=== PATIENT | female | born 1985 | race Caucasian/White ===

== ENCOUNTER 2016-07-17 16:38 | Emergency (ER) | payer BC, OTHER ==
[~2016-07-17] VITALS: Ht 157.5 cm; Wt 78.6 kg
[~2016-07-17 16:38] MED LIST: BUSP-8 PO
[2016-07-17 16:44] VITALS: TEMP 36.5; Ht 157.5 cm; Wt 78.6 kg
[2016-07-17] MEDS ORDERED: PROMETHAZINE HCL INJ 12.5 MG in SODIUM CHLORIDE 0.9% 50ML 50 ML IV STA (17:40)
[2016-07-17] MEDS ORDERED: SODIUM CHLORIDE 0.9% 1000ML 1,000 ML IV STA ×2 (17:40→19:04)
[2016-07-17 18:08] LABS: BASO % 0.2 %; BASO ABS # 0.02 K/uL (0-0.2); COMPLETE YES; EOS % 0.4 %; HEMATOCRIT 42.4 % (37-47); IG% 0.2 %; LYMPH % 22.5 %; LYMPH ABS # 2.58 K/uL (1.2-3.4); MEAN CORPUSCULAR HEMOGLOBIN 30.7 pg (25-34); MEAN CORPUSCULAR HGB CONC 34.9 g/dl (32-36); MEAN PLATELET VOLUME 10.6 fL (7.4-10.4); MONO % 5.1 %; NEUT % 71.6 %; PLATELET COUNT 241 K/uL (130-400); RED BLOOD COUNT 4.82 M/uL (4.2-5.4); WHITE BLOOD COUNT 11.47 K/uL (4.8-10.8)
[2016-07-17 18:32] LABS: BUN/CREATININE RATIO 15.7 (10-20); CREATININE 0.62 mg/dl (0.60-1.20)
[2016-07-17 20:04] VITALS: BP 139/76; PULSE 86; O2SAT 98
--- NOTE | 2016-07-17 23:10 | EMERGENCY ROOM VISIT NOTE ---
History Report prepared by Tamar: Chanel Ding Under the Supervision of: Dr. Cosmo Grant M.D. First contact with patient: 17:35 Chief Complaint: REFERRED BY DOCTOR Stated Complaint: N/V, LARGE KETONES IN URINE, 10WKS PREG,WEIGHTLOSS History of Present Illness The patient is a 30 year old female who presents to the Emergency Room with complaints of constant vomiting beginning 10 weeks ago. The patient reports that she is 10 weeks and has been vomiting the entire time including just prior to getting . The patient was referred to the ED by her doctor to receive fluids. She states that she has tried Zofran with no relief of her symptoms. She was then switched to oral Phenergan is and recently was prescribed Phenergan suppositories that are too expensive as her insurance does not cover the cost. She notes associated nausea. The patient denies any pain, vaginal bleeding or discharge, diarrhea, and fever. She reports that she had large amounts of ketones in her urine at her doctors office but no infection. Source of History: patient Onset: 10 weeks ago Position: other (global) Quality: other (vomiting) Timing: constant Associated Symptoms: + nausea, No diarrhea, No fevers Note: The patient denies any pain and vaginal bleeding or discharge. Review of Systems See HPI for pertinent positives & negatives. A total of 10 systems reviewed and were otherwise negative. Past Medical & Surgical Medical Problems: (1) No significant medical problems Surgical Problems: (1) No significant past surgical history (2) No significant past surgical history Family History No pertinent family history stated. Social History Smoking Status: Never Smoker Alcohol Use: occasionally Marital Status: Housing Status: lives with family Occupation Status: employed Current/Historical Medications Scheduled Citalopram Hydrobromide (Celexa), 40 MG PO DAILY Multivit/Min/Iron/Fol Ac/Pren ( Vitamin), 1 TAB PO DAILY Scheduled PRN Promethazine (Phenergan ), 12.5 MG PO Q6H PRN for Nausea or Vomiting Allergies Coded Allergies: Aminoglycosides (Verified Allergy, Mild, INCREASED REDNESS;SWELLING, ) Bacitracin (Verified Allergy, Mild, INCREASED REDNESS;SWELLING, 07/17/16) Clavulanic Acid (Verified Allergy, Mild, HIVES, 07/17/16) Neomycin (Verified Allergy, Mild, INCREASED REDNESS;SWELLING, 07/17/16) Polymyxin B (Verified Allergy, Mild, INCREASED REDNESS;SWELLING, 07/17/16) Amoxicillin (Unverified Allergy, Unknown, HIVES, 07/17/16) Penicillins (Verified Allergy, Unknown, 07/17/16) Uncoded Allergies: BETALACTAMASEIN (Allergy, Mild, HIVES, 10/06/14) Physical Exam Vital Signs Date Time Temp Pulse Resp B/P Pulse Ox O2 Delivery O2 Flow Rate FiO2 07/17/16 20:04 86 18 139/76 98 07/17/16 18:13 79 20 113/68 100 Room Air 07/17/16 16:44 36.5 106 18 118/74 98 Room Air Physical Exam Constitutional: Vital signs reviewed. Eyes: Pupils are equal round reactive to light. Conjunctiva are noninjected. ENT: Pharynx is clear without erythema or exudate. Mucous membranes are dry. Neck supple without meningeal signs. Respiratory: Clear to auscultation bilaterally. Breath sounds are equal bilaterally. Cardiovascular: Regular rate and rhythm. No rubs or gallops. GI: Soft, nondistended and nontender. Bowel sounds are present. Musculoskeletal: No peripheral edema. No lower extremity tenderness. No CVA tenderness. Integumentary: No cyanosis. Neurological: The patient is awake and alert. No focal deficits. Psychiatric: Normal affect. Medical Decision & Procedures Laboratory Results 07/17/16 17:55 Red Blood Count 4.82, Mean Corpuscular Volume 88.0, Mean Corpuscular Hemoglobin 30.7, Mean Corpuscular Hemoglobin Concent 34.9, Mean Platelet Volume 10.6, Neutrophils (%) (Auto) 71.6, Lymphocytes (%) (Auto) 22.5, Monocytes (%) (Auto) 5.1, Eosinophils (%) (Auto) 0.4, Basophils (%) (Auto) 0.2, Neutrophils # (Auto) 8.21, Lymphocytes # (Auto) 2.58, Monocytes # (Auto) 0.59, Eosinophils # (Auto) 0.05, Basophils # (Auto) 0.02 07/17/16 17:55 Test 07/17/16 17:55 White Blood Count 11.47 K/uL (4.8-10.8) Red Blood Count 4.82 M/uL (4.2-5.4) Hemoglobin 14.8 g/dL (12.0-16.0) Hematocrit 42.4 % (37-47) Mean Corpuscular Volume 88.0 fL (80-100) Mean Corpuscular Hemoglobin 30.7 pg (25-34) Mean Corpuscular Hemoglobin Concent 34.9 g/dl (32-36) Platelet Count 241 K/uL (130-400) Mean Platelet Volume 10.6 fL (7.4-10.4) Neutrophils (%) (Auto) 71.6 % Lymphocytes (%) (Auto) 22.5 % Monocytes (%) (Auto) 5.1 % Eosinophils (%) (Auto) 0.4 % Basophils (%) (Auto) 0.2 % Neutrophils # (Auto) 8.21 K/uL (1.4-6.5) Lymphocytes # (Auto) 2.58 K/uL (1.2-3.4) Monocytes # (Auto) 0.59 K/uL (0.11-0.59) Eosinophils # (Auto) 0.05 K/uL (0-0.5) Basophils # (Auto) 0.02 K/uL (0-0.2) RDW Standard Deviation 43.1 fL (36.4-46.3) RDW Coefficient of Variation 13.4 % (11.5-14.5) Immature Granulocyte % (Auto) 0.2 % Immature Granulocyte # (Auto) 0.02 K/uL (0.00-0.02) Anion Gap 10.0 mmol/L (3-11) Est Creatinine Clear Calc Drug Dose 130.0 ml/min Estimated GFR () 141.2 Estimated GFR (Non- 121.9 BUN/Creatinine Ratio 15.7 (10-20) Calcium Level 9.0 mg/dl (8.5-10.1) Laboratory results as reviewed by me. Medications Administered Medications (Trade) Dose Ordered Sig/Mita Route Start Time Stop Time Status Last Admin Dose Admin Sodium Chloride 1,000 ml @ 999 mls/hr Q1H1M STAT IV 07/17/16 17:40 07/17/16 18:40 DC 07/17/16 18:12 999 MLS/HR Promethazine HCl 12.5 mg/Sodium Chloride 50.5 ml @ 204 mls/hr NOW STAT IV 07/17/16 17:40 14/17 17:54 DC 07/17/16 18:12 204 MLS/HR Sodium Chloride (Nss 1000ml) 1,000 ml @ 999 mls/hr Q1H1M STAT IV 07/17/16 19:04 07/17/16 20:04 DC 07/17/16 19:04 999 MLS/HR ED Course 1735: The patient was evaluated in room C10. A complete history and physical exam was performed. 1739: Promethazine HCl 12.5mg/Sodium Chloride 50.5ml @ 204 mls/hr IV, Sodium Chloride 1000 ml @ 999 mls/hr IV. 1903: Sodium Chloride 1000 ml @ 999 mls/hr IV. 1899: I reevaluated the patient. She feels better but we are going to give her another liter of fluids. I discussed with her risks and benefits of Reglan and she is agreeable to a prescription instead of the Phenergan suppositories. 1942: I reevaluated the patient. She is feeling better and wants to go home. 1951: I spoke to the patient and she will try the oral Phenergan again. 1958: Upon reevaluation, the patient appeared to have improvement of her symptoms. I discussed priscila's findings with the patient. She verbalized agreement of the treatment plan. The patient was discharged home. Medical Decision This is a 30-year-old female who presents with vomiting in the setting of . Differential diagnosis includes dehydration, electrolyte abnormality , hyperemesis gravidarum, metabolic derangement, DKA. I did perform a limited focused review of portions of the patient's old chart on the electronic medical record. The patient has had no recent pertinent visits to this hospital. I did evaluate the patient as noted above. I did speak to Dr. Alexander about this patient. He recommended IV fluids and Phenergan. IV access was established. I did treat the patient with normal saline IV and Phenergan IV. I did order and review the patient's blood work as noted in the electronic medical record. I did reassess the patient. She is feeling better but I did give her another liter of normal saline. On reassessment she states that she has been doing better and wished to be discharged home. She is still nauseated but did not wish to be hospitalized. I was called to prescribe her Reglan but there were interactions with her Celexa and so after discussion with the patient she decided that she would try to stick with the oral Phenergan. She will follow up with her doctor. She was discharged in good condition. Impression Primary Impression: Dehydration Additional Impressions: Vomiting, First trimester Scribe Attestation The scribe's documentation has been prepared under my direct and personally reviewed by me in its entirety. I confirm that the note above accurately reflects all work, treatment, procedures, and medical decision making performed by me. Departure Information Dispostion Home / Self-Care Referrals No Doctor, Assigned (PCP) Forms HOME CARE DOCUMENTATION FORM, IMPORTANT VISIT INFORMATION, WORK / SCHOOL INSTRUCTIONS Patient Instructions A Signature Page, Dehydration, My [facility] Additional Instructions You have been examined and treated today on an emergency basis only. This is not a substitute for, or an effort to provide, complete comprehensive medical care. It is impossible to recognize and treat all injuries or illnesses in a single emergency department visit. It is therefore important that you follow up closely with your physician. Call as soon as possible for an appointment. Return for worsening symptoms or if you develop fever, abdominal pain, or any other concerning symptoms.
[2016-07-18] MEDS ORDERED: CITA40TA12 PO (00:41)
[2016-07-18] MEDS ORDERED: ONDA4TAB10 SL (11:31)
[2016-07-18] MEDS ORDERED: PRENTAB26 PO (17:49)
[2016-07-18] MEDS ORDERED: PROM12.57 PO (17:49)
== END 2016-07-17 20:05 | disposition home or self-care (01) ==
LOC: C.EDB 16:40 → C.EDC 20:05
DX: O99.89 Other specified diseases and conditions complicating pregnancy, childbirth and the puerperium (principal); E86.0 Dehydration; R11.2 Nausea with vomiting, unspecified; Z79.899 Other long term (current) drug therapy

== ENCOUNTER 2016-07-18 06:55 | Emergency (ER) | payer BC ==
[~2016-07-18] VITALS: Ht 157.5 cm; Wt 79.4 kg
[~2016-07-18 06:55] MED LIST changes: -BUSP-8 PO; +CITA40TA12 PO
[2016-07-18 07:00] VITALS: TEMP 36.6; Ht 157.5 cm; Wt 79.4 kg
[2016-07-18] MEDS ORDERED: THIAMINE HCL 100 MG/ML 2 ML VIAL IV STA (07:10)
[2016-07-18] MEDS ORDERED: PROMETHAZINE HCL INJ 12.5 MG in SODIUM CHLORIDE 0.9% 50ML 50 ML IV STA (07:10)
[2016-07-18] MEDS ORDERED: SODIUM CHLORIDE 0.9% 1000ML 1,000 ML IV STA ×2 (07:10)
[2016-07-18] MEDS ORDERED: FAMOTIDINE 20MG/102 ML D5W IV STA (07:10)
--- NOTE | 2016-07-18 07:26 | EMERGENCY ROOM VISIT NOTE ---
History Report prepared by Tamar: Roberto Cruz Under the Supervision of: Dr. Bobby Briceño D.O. First contact with patient: 07:05 Chief Complaint: VOMITING Stated Complaint: NAUSEA,VOMITING Nursing Triage Summary: States was seen yesterday at the request of her [facility]AIL [facility]PARTMENT [facility]ET, 10-weeks , with vomiting, had fluids and was d/c. Woke with vomiting and was told to come in if it started again. History of Present Illness The patient is a 30 year old female who presents to the Emergency Room with complaints of episodes of vomiting that started last night. She is 10-weeks . The patient was here last night for dehydration and she was given Phenergan. She has been vomiting ever since. This morning, she started vomiting blood, so she called the OB job specification writer, and a nurse answered and told the patient to come to the ED if she vomited again. The patient continued vomiting and vomited a total of 4 times this morning. She notes that she cannot even keep water down. The patient has been vomiting for 8 weeks and has been associating the vomiting with nausea. She has been tried on Zofran, among other medications , but nothing is working. She tried to take her Phenergan today but it came right back up 5 minutes later. She has not been urinating much because she cannot keep anything down, but she denies any urinary symptoms. The patient denies vaginal bleeding. She has depression and is taking Celexa for that. She also has interstitial cystitis, for which she is not being medicated for. The patient does not use tobacco or alcohol products. This is her 3rd , and she has not had any problems before with those. The patient is not on any blood thinners. She has a history of a tonsillectomy and adenoidectomy. Source of History: patient Onset: Last night Position: other (global - vomiting blood) Symptom Intensity: 4 times this morning Timing: other (episodes) Associated Symptoms: + nausea, No urinary symptoms Note: Associated symptoms: Denies vaginal bleeding. Review of Systems See HPI for pertinent positives & negatives. A total of 10 systems reviewed and were otherwise negative. Past Medical & Surgical Medical Problems: (1) No significant medical problems Surgical Problems: (1) History of tonsillectomy and adenoidectomy (2) No significant past surgical history (3) No significant past surgical history Family History Cancer Heart disease Social History Smoking Status: Never Smoker Alcohol Use: occasionally Marital Status: Housing Status: lives with family Occupation Status: employed Current/Historical Medications Scheduled Citalopram Hydrobromide (Celexa), 40 MG PO DAILY Multivit/Min/Iron/Fol Ac/Pren ( Vitamin), 1 TAB PO DAILY Ondasetron Odt (Zofran Odt), 4 MG SL Q6H Scheduled PRN Promethazine (Phenergan ), 12.5 MG PO Q6H PRN for Nausea or Vomiting Allergies Coded Allergies: Aminoglycosides (Verified Allergy, Mild, INCREASED REDNESS;SWELLING, ) Bacitracin (Verified Allergy, Mild, INCREASED REDNESS;SWELLING, 07/18/16) Clavulanic Acid (Verified Allergy, Mild, HIVES, 07/18/16) Neomycin (Verified Allergy, Mild, INCREASED REDNESS;SWELLING, 07/18/16) Polymyxin B (Verified Allergy, Mild, INCREASED REDNESS;SWELLING, 07/18/16) Amoxicillin (Unverified Allergy, Unknown, HIVES, 07/18/16) Penicillins (Verified Allergy, Unknown, 07/18/16) Uncoded Allergies: BETALACTAMASEIN (Allergy, Mild, HIVES, 10/06/14) Physical Exam Vital Signs Date Time Temp Pulse Resp B/P Pulse Ox O2 Delivery O2 Flow Rate FiO2 07/18/16 11:43 77 18 100/61 98 Room Air 07/18/16 11:13 81 07/18/16 09:19 82 20 98/68 99 Room Air 07/18/16 08:26 74 18 96/65 96 Room Air 07/18/16 07:47 91 14 107/66 98 Room Air 07/18/16 07:25 94 07/18/16 07:00 36.6 79 16 109/72 100 Room Air Physical Exam GENERAL: Patient is awake, alert, and in no acute distress. Patient is resting comfortably and showing no signs of anxiety EYES: The conjunctivae are clear. The pupils are round and reactive. EARS, NOSE, MOUTH AND THROAT: The nose is without any evidence of any deformity. Mucous membranes are dry. NECK: The neck is nontender and supple. RESPIRATORY: Normal respiratory effort is noted there is no evidence of wheezing rhonchi or rales CARDIOVASCULAR: Heart sounds tachycardic but regular. No definite murmur appreciated. GASTROINTESTINAL: The abdomen is soft. Bowel sounds are present in all quadrants. Abdomen is nontender MUSCULOSKELETAL/EXTREMITIES: There is no evidence of gross deformity full range of motion is noted in the hips and shoulders SKIN: There is no obvious evidence of any rash. There are no petechiae, pallor or cyanosis noted. NEUROLOGIC: Patient is awake alert and oriented x3. Medical Decision & Procedures ER Provider Diagnostic Interpretation: X-ray results as stated below per interpretation by me and the radiologist. CHEST ONE VIEW PORTABLE CLINICAL HISTORY: Abdominal pain. COMPARISON STUDY: Chest radiograph February 25, 2015. FINDINGS: Lung volumes are normal. No pneumothorax or pleural effusion is present. No consolidation is identified. Cardiac size is normal. Mediastinal contours are normal. There is no evidence of pulmonary edema. No lucency is identified under the hemidiaphragms to suggest pneumoperitoneum on this exam. IMPRESSION: No acute cardiopulmonary findings. Electronically signed by: Cal Kaye M.D. 07/18/2016 7:45 AM Laboratory Results 07/18/16 07:30 Red Blood Count 4.46, Mean Corpuscular Volume 86.3, Mean Corpuscular Hemoglobin 30.3, Mean Corpuscular Hemoglobin Concent 35.1, Mean Platelet Volume 10.7, Neutrophils (%) (Auto) 81.6, Lymphocytes (%) (Auto) 14.6, Monocytes (%) (Auto) 3.1, Eosinophils (%) (Auto) 0.1, Basophils (%) (Auto) 0.3, Neutrophils # (Auto) 9.34, Lymphocytes # (Auto) 1.67, Monocytes # (Auto) 0.36, Eosinophils # (Auto) 0.01, Basophils # (Auto) 0.03 07/18/16 07:30 Test 07/18/16 07:30 07/18/16 09:30 White Blood Count 11.44 K/uL (4.8-10.8) Red Blood Count 4.46 M/uL (4.2-5.4) Hemoglobin 13.5 g/dL (12.0-16.0) Hematocrit 38.5 % (37-47) Mean Corpuscular Volume 86.3 fL (80-100) Mean Corpuscular Hemoglobin 30.3 pg (25-34) Mean Corpuscular Hemoglobin Concent 35.1 g/dl (32-36) Platelet Count 236 K/uL (130-400) Mean Platelet Volume 10.7 fL (7.4-10.4) Neutrophils (%) (Auto) 81.6 % Lymphocytes (%) (Auto) 14.6 % Monocytes (%) (Auto) 3.1 % Eosinophils (%) (Auto) 0.1 % Basophils (%) (Auto) 0.3 % Neutrophils # (Auto) 9.34 K/uL (1.4-6.5) Lymphocytes # (Auto) 1.67 K/uL (1.2-3.4) Monocytes # (Auto) 0.36 K/uL (0.11-0.59) Eosinophils # (Auto) 0.01 K/uL (0-0.5) Basophils # (Auto) 0.03 K/uL (0-0.2) RDW Standard Deviation 41.5 fL (36.4-46.3) RDW Coefficient of Variation 13.1 % (11.5-14.5) Immature Granulocyte % (Auto) 0.3 % Immature Granulocyte # (Auto) 0.03 K/uL (0.00-0.02) Prothrombin Time 11.4 SECONDS (9.0-12.0) Prothromb Time International Ratio 1.1 (0.9-1.1) Activated Partial Thromboplast Time 26.4 SECONDS (21.0-31.0) Partial Thromboplastin Ratio 1.0 Anion Gap 13.0 mmol/L (3-11) Est Creatinine Clear Calc Drug Dose 168.8 ml/min Estimated GFR () > 150.0 Estimated GFR (Non- 132.6 BUN/Creatinine Ratio 18.1 (10-20) Calcium Level 8.3 mg/dl (8.5-10.1) Total Bilirubin 0.5 mg/dl (0.2-1) Direct Bilirubin mg/dl (0-0.2) Aspartate Amino Transf (AST/SGOT) 17 U/L (15-37) Alanine Aminotransferase (ALT/SGPT) 17 U/L (12-78) Alkaline Phosphatase 67 U/L (45-117) Total Protein 6.8 gm/dl (6.4-8.2) Albumin 3.3 gm/dl (3.4-5.0) Lipase 147 U/L (73-393) Chemistry Specimen Hemolysis Urine Color YELLOW Urine Appearance CLEAR (CLEAR) Urine pH 5.5 (4.5-7.5) Urine Specific [place] 1.016 (1.000-1.030) Urine Protein NEG (NEG) Urine Glucose (UA) NEG (NEG) Urine Ketones 4+ (NEG) Urine Occult Blood NEG (NEG) Urine Nitrite NEG (NEG) Urine Bilirubin NEG (NEG) Urine Urobilinogen NEG (NEG) Urine Leukocyte Esterase NEG (NEG) Laboratory results per my review. Medications Administered Medications (Trade) Dose Ordered Sig/Mita Route Start Time Stop Time Status Last Admin Dose Admin Sodium Chloride 1,000 ml @ 999 mls/hr Q1H1M STAT IV 07/18/16 07:10 07/18/16 08:10 DC 07/18/16 07:45 999 MLS/HR Sodium Chloride 1,000 ml @ 250 mls/hr Q4H STAT IV 07/18/16 07:10 07/18/16 11:09 DC 07/18/16 07:45 250 MLS/HR Promethazine HCl/ Sodium Chloride (Phenergan Inj/ Nss 50ml) 50.5 ml @ 204 mls/hr NOW STAT IV 07/18/16 07:10 07/18/16 07:24 DC 07/18/16 07:42 204 MLS/HR Thiamine HCl (Vitamin B-1 Inj) 100 mg NOW STAT IV 07/18/16 07:10 07/18/16 07:12 DC 07/18/16 07:42 100 MG Famotidine (Pepcid 20mg/100 ml) 20 mg ONE STAT IV 07/18/16 07:10 07/18/16 07:12 DC 07/18/16 07:42 20 MG Ondansetron HCl (Zofran Inj) 4 mg NOW STAT IV 07/18/16 08:01 07/18/16 08:02 DC 07/18/16 08:06 4 MG Promethazine HCl (Phenergan Supp) 25 mg NOW STAT NH 07/18/16 11:09 07/18/16 11:10 DC 07/18/16 11:09 25 MG Promethazine HCl (Phenergan Supp) 25 mg Q6H PRN NH 07/18/16 11:30 07/18/16 12:16 DC 07/18/16 11:43 25 MG Procedure A bedside ultrasound was done. There was good movement and heart rate was observed. ED Course 0708: The patient was evaluated in room B10. A complete history and physical examination were performed. 0710: Ordered Pepcid 20mg/100 ml 20 mg IV, Vitamin B-1 Inj 100 mg IV, Promethazine HCl 12.5 mg/Sodium Chloride 50.5 ml @ 204 mls/hr IV, NSS 1000 ml @ 250 mls/hr IV, NSS 1000 ml @ 999 mls/hr IV. 0755: I performed a bedside ultrasound on the patient. 0801: Ordered Zofran Inj 4 mg IV. 1109: Ordered Phenergan Supp 25 mg NH. 1134: I reevaluated the patient and she is resting comfortably. The patient verbally expressed understanding and agreement of the treatment plan. The patient will be discharged. Medical Decision Differential diagnosis: Etiologies such as gastroenteritis, food borne illness, infections, appendicitis , diverticulitis, inflammatory bowel disease, obstruction, GI bleed, biliary pathology, as well as others were entertained. Nursing notes reviewed. Patient's previous electronic medical records reviewed. The patient is a 30-year-old female who presented to the emergency department for an evaluation of nausea vomiting. The patient is currently in her first trimester . She has been experiencing severe nausea and vomiting with this . She's had 2 previous pregnancies they have not been complicated by hyperemesis. The patient did not have a physical exam consistent with an acute surgical abdomen but she did complain of nausea vomiting with some blood streaks in her emesis on the most recent episodes of vomiting. I discussed the patient's laboratory and radiographic studies with her. She was reevaluated multiple times. She was treated with IV fluids IV antiemetics and IV H2 blockers in the emergency department. On subsequent reevaluation she was somewhat improved. A bedside ultrasound was also obtained by myself because the patient was concerned about the baby. Good movement was noted as well as good heart rate. The ultrasound was shown to the patient. The patient was reevaluated and was feeling much better. I [facility]. The patient was encouraged to continue all medications as prescribed. She was sent home with some Phenergan suppositories. She was also encouraged to drink plenty clear liquids including Pedialyte and Gatorade. She was also encouraged to return to the emergency department immediately if symptoms change worsen or the need arises. Impression Primary Impression: Hyperemesis Additional Impressions: Dehydration, First trimester Scribe Attestation The scribe's documentation has been prepared under my direction and personally reviewed by me in its entirety. I confirm that the note above accurately reflects all work, treatment, procedures, and medical decision making performed by me. Departure Information Dispostion Home / Self-Care Prescriptions Ondasetron Odt (ZOFRAN ODT) 4 Mg Tab 4 MG SL Q6H for Nausea, #20 TAB Prov: Bobby Briceño, DO 07/18/16 Referrals No Doctor, Assigned (PCP) Forms HOME CARE DOCUMENTATION FORM, IMPORTANT VISIT INFORMATION, Work Instructions Patient Instructions A Signature Page, Jovita, My [facility] Additional Instructions Continue all medications as prescribed. Call your RETAIL DEPARTMENT RESET physician to schedule follow-up appointment. Drink plenty of clear liquids including Pedialyte or Gatorade to keep herself well-hydrated. Return to the emergency department if symptoms change worsen or if the need arises.
[2016-07-18 07:41] LABS: BASO % 0.3 %; BASO ABS # 0.03 K/uL (0-0.2); COMPLETE YES; EOS % 0.1 %; HEMATOCRIT 38.5 % (37-47); IG% 0.3 %; LYMPH % 14.6 %; LYMPH ABS # 1.67 K/uL (1.2-3.4); MEAN CELL VOLUME 86.3 fL (80-100); MEAN CORPUSCULAR HEMOGLOBIN 30.3 pg (25-34); MEAN CORPUSCULAR HGB CONC 35.1 g/dl (32-36); MEAN PLATELET VOLUME 10.7 fL (7.4-10.4); MONO % 3.1 %; NEUT % 81.6 %; PLATELET COUNT 236 K/uL (130-400); RED BLOOD COUNT 4.46 M/uL (4.2-5.4); WHITE BLOOD COUNT 11.44 K/uL (4.8-10.8)
--- NOTE | 2016-07-18 07:47 | DIAGNOSTIC IMAGING REPORT ---
CHEST ONE VIEW PORTABLE CLINICAL HISTORY: Abdominal pain. COMPARISON STUDY: Chest radiograph February 25, 2015. FINDINGS: Lung volumes are normal. No pneumothorax or pleural effusion is present. No consolidation is identified. Cardiac size is normal. Mediastinal contours are normal. There is no evidence of pulmonary edema. No lucency is identified under the hemidiaphragms to suggest pneumoperitoneum on this exam. IMPRESSION: No acute cardiopulmonary findings. Electronically signed by: Cal Kaye M.D. 07/18/2016 7:45 AM
[2016-07-18 07:59] LABS: INR 1.1 (0.9-1.1); PROTHROMBIN TIME (PATIENT) 11.4 SECONDS (9.0-12.0)
[2016-07-18] MEDS ORDERED: ONDANSETRON INJ 2 MG/ML 2 ML VIAL IV STA (08:01)
[2016-07-18 08:17] LABS: ALKALINE PHOSPHATASE 67 U/L (45-117); ALT/SGPT 17 U/L (12-78); BLOOD UREA NITROGEN 9 mg/dl (7-18); BUN/CREATININE RATIO 18.1 (10-20); CALCIUM 8.3 mg/dl (8.5-10.1); CARBON DIOXIDE 16 mmol/L (21-32); CHLORIDE 110 mmol/L (98-107); CREATININE 0.48 mg/dl (0.60-1.20); GLUCOSE 69 mg/dl (70-99); SODIUM 139 mmol/L (136-145)
[2016-07-18 08:35] LABS: AST/SGOT 17 U/L (15-37); POTASSIUM 4.1 mmol/L (3.5-5.1)
[2016-07-18 10:25] LABS: URINE APPEARANCE CLEAR (CLEAR); URINE BILIRUBIN NEG (NEG); URINE COLOR YELLOW; URINE NITRITE NEG (NEG); URINE PH 5.5 (4.5-7.5); URINE SPECIFIC GRAVITY 1.016 (1.000-1.030); UROBILINOGEN NEG (NEG)
[2016-07-18 10:50] LABS: MANUAL MICROSCOPIC REQUIRED? NO; REVIEW REQ? NO
[2016-07-18] MEDS ORDERED: PROMETHAZINE HCL 25 MG SUPP PR STA (11:09)
[2016-07-18] MEDS ORDERED: PROMETHAZINE HCL 25 MG SUPP PR PRN (11:30)
[2016-07-18] MEDS ORDERED: ONDA4TAB10 SL (11:31)
[2016-07-18 11:43] VITALS: BP 100/61; PULSE 77; O2SAT 98
[2016-07-18] MEDS ORDERED: PRENTAB26 PO (17:49)
[2016-07-18] MEDS ORDERED: PROM12.57 PO (17:49)
== END 2016-07-18 11:52 | disposition home or self-care (01) ==
LOC: C.EDB 06:56
DX: O21.1 Hyperemesis gravidarum with metabolic disturbance (principal); O99.281 Endocrine, nutritional and metabolic diseases complicating pregnancy, first trimester; E86.0 Dehydration; O99.341 Other mental disorders complicating pregnancy, first trimester; F32.9 Major depressive disorder, single episode, unspecified; Z3A.10 10 weeks gestation of pregnancy; Z79.899 Other long term (current) drug therapy

== ENCOUNTER 2016-07-31 22:42 | Emergency (ER) | payer BC, OTHER ==
[~2016-07-31] VITALS: Ht 157.5 cm; Wt 76.4 kg
[~2016-07-31 22:42] MED LIST changes: +ONDA4TAB10 SL; +PRENTAB26 PO; +PROM12.57 PO
[2016-07-31 22:44] VITALS: TEMP 36.7; Ht 157.5 cm; Wt 76.4 kg
[2016-07-31] MEDS ORDERED: DiphenhydrAMINE HCL 50 MG/ML VIAL IV STA (22:50)
[2016-07-31] MEDS ORDERED: PYRIDOXINE HCL 50 MG TAB PO STA (22:50)
[2016-07-31] MEDS ORDERED: SODIUM CHLORIDE 0.9% 1000ML 1,000 ML IV STA ×2 (22:50)
[2016-07-31] MEDS ORDERED: ONDANSETRON INJ 2 MG/ML 2 ML VIAL IV STA (22:50)
[2016-07-31] MEDS ORDERED: ONDA4TAB10 SL (22:59)
[2016-07-31 23:24] LABS: BASO % 0.1 %; BASO ABS # 0.02 K/uL (0-0.2); COMPLETE YES; EOS % 0.2 %; HEMATOCRIT 43.4 % (37-47); IG% 0.4 %; LYMPH % 15.3 %; LYMPH ABS # 2.14 K/uL (1.2-3.4); MEAN CELL VOLUME 86.6 fL (80-100); MEAN CORPUSCULAR HEMOGLOBIN 30.3 pg (25-34); MEAN PLATELET VOLUME 10.4 fL (7.4-10.4); MONO % 3.4 %; NEUT % 80.6 %; PLATELET COUNT 303 K/uL (130-400); RED BLOOD COUNT 5.01 M/uL (4.2-5.4); WHITE BLOOD COUNT 14.03 K/uL (4.8-10.8)
[2016-07-31] MEDS ORDERED: FAMOTIDINE IV INJ 20 MG in DEXTROSE 5% 100ML 100 ML IV STA (23:38)
[2016-07-31 23:49] LABS: BUN/CREATININE RATIO 20.5 (10-20); CALCIUM 9.8 mg/dl (8.5-10.1); CREATININE 0.62 mg/dl (0.60-1.20)
[2016-07-31 23:57] LABS: URINE APPEARANCE CLEAR (CLEAR); URINE COLOR DK YELLOW; URINE EPITHELIAL CELL AUTO >30 /lpf (0-5); URINE NITRITE NEG (NEG); URINE PH 5.5 (4.5-7.5); URINE SPECIFIC GRAVITY 1.028 (1.000-1.030); UROBILINOGEN NEG (NEG); ZZUR CULT IF INDIC CLEAN CATCH NO
[2016-08-01 00:06] LABS: MANUAL MICROSCOPIC REQUIRED? NO; REVIEW REQ? YES; URINE BILIRUBIN 1+ (NEG)
[2016-08-01 00:08] LABS: URINE MUCUS PRESENT (NONE PRSENT)
[2016-08-01] MEDS ORDERED: METOCLOPRAMIDE HCL INJ 5 MG/ML 2 ML VIAL IV STA (00:10)
[2016-08-01] MEDS ORDERED: SODIUM CHLORIDE 0.9% 1000ML 1,000 ML IV STA (00:20)
[2016-08-01] MEDS ORDERED: DiphenhydrAMINE HCL 50 MG/ML VIAL IV STA (00:31)
--- NOTE | 2016-08-01 01:41 | EMERGENCY ROOM VISIT NOTE ---
History First contact with patient: 22:47 Chief Complaint: NAUSEA Stated Complaint: UNCONTROLLED N/V 13 WKS Nursing Triage Summary: 13 weeks preg. uncontrolled n/v. seen here 2 weeks ago for the same. "vomiting since Friday at 3. the last time I ate was Friday. I can't even keep a sip of water down". sorethroat from vomiting History of Present Illness The patient is a 30 year old female who presents to the Emergency Room with complaints of nausea, vomiting, fatigue for the past several days is currently 13 weeks . Physical third . She's had severe hyperemesis with her . She follows with [facility]. Patient denies abdominal pain, vaginal bleeding, vaginal discharge, back pain, fever, chills, diarrhea, urinary symptoms. No problems with any prior pregnancies. Review of Systems See HPI for pertinent positives & negatives. A total of 10 systems reviewed and were otherwise negative. Past Medical/Surgical History Medical Problems: (1) No significant medical problems Surgical Problems: (1) History of tonsillectomy and adenoidectomy (2) No significant past surgical history (3) No significant past surgical history Family History Cancer Heart disease Social History Smoking Status: Never Smoker Alcohol Use: occasionally Marital Status: Housing Status: lives with family Occupation Status: employed Current/Historical Medications Scheduled Citalopram Hydrobromide (Celexa), 40 MG PO DAILY Multivit/Min/Iron/Fol Ac/Pren ( Vitamin), 1 TAB PO DAILY Scheduled PRN Ondasetron Odt (Zofran Odt), 4 MG SL Q6H PRN for Nausea Promethazine (Phenergan ), 12.5 MG PO Q6H PRN for Nausea or Vomiting Allergies Coded Allergies: Aminoglycosides (Verified Allergy, Mild, INCREASED REDNESS;SWELLING, ) Bacitracin (Verified Allergy, Mild, INCREASED REDNESS;SWELLING, 07/31/16) Clavulanic Acid (Verified Allergy, Mild, HIVES, 07/31/16) Neomycin (Verified Allergy, Mild, INCREASED REDNESS;SWELLING, 07/31/16) Polymyxin B (Verified Allergy, Mild, INCREASED REDNESS;SWELLING, 07/31/16) Amoxicillin (Unverified Allergy, Unknown, HIVES, 07/31/16) Penicillins (Verified Allergy, Unknown, 07/31/16) Uncoded Allergies: BETALACTAMASEIN (Allergy, Mild, HIVES, 10/06/14) Physical Exam Vital Signs Date Time Temp Pulse Resp B/P Pulse Ox O2 Delivery O2 Flow Rate FiO2 08/01/16 00:42 84 18 93/56 98 Room Air 07/31/16 22:44 36.7 115 18 128/87 98 Room Air Physical Exam VITALS: Vitals are noted on the nurse's note and reviewed by myself. Vital signs stable. GENERAL: Pleasant female, in no acute distress, nondiaphoretic, well-developed well-nourished. SKIN: The skin was without rashes, erythema, edema, or bruising. There is no tenting of the skin. Capillary reflex less than 2 seconds. HEAD: Normocephalic atraumatic. EARS: External auditory canals clear, tympanic membranes pearly rowland without erythema or effusion bilaterally. EYES: Pupils equal round and reactive to light and accommodation. Conjunctivae without injection, sclerae without icterus. Extraocular movements intact. NOSE: Patent, turbinates without inflammation or discharge. MOUTH: Mucous membranes mildly dry. Pharynx without erythema or exudate. Uvula midline. Airway patent. Tongue does not deviate. NECK: Supple without nuchal rigidity. No lymphadenopathy. No thyromegaly. Cervical spine is nontender. No JVD. HEART: Regular rate and rhythm without murmurs gallops or rubs. LUNGS: Clear to auscultation bilaterally without wheezes, rales or rhonchi. No dullness to percussion. No retractions or accessory muscle use. ABDOMEN: Positive bowel sounds x 4. Normal tympanic percussion. Soft, , no CVA tenderness, nontender, without masses or organomegaly. Bustos sign negative. No guarding or rebound tenderness. MUSCULOSKELETAL: No muscle atrophy, erythema, or edema noted. NEURO: Patient was alert and oriented to person place and time. Normal sensation to light and sharp touch. No focal neurological deficits. Medical Decision & Procedures Laboratory Results 07/31/16 23:05 Red Blood Count 5.01, Mean Corpuscular Volume 86.6, Mean Corpuscular Hemoglobin 30.3, Mean Corpuscular Hemoglobin Concent 35.0, Mean Platelet Volume 10.4, Neutrophils (%) (Auto) 80.6, Lymphocytes (%) (Auto) 15.3, Monocytes (%) (Auto) 3.4, Eosinophils (%) (Auto) 0.2, Basophils (%) (Auto) 0.1, Neutrophils # (Auto) 11.31, Lymphocytes # (Auto) 2.14, Monocytes # (Auto) 0.48, Eosinophils # (Auto) 0.03, Basophils # (Auto) 0.02 07/31/16 23:05 Test 07/31/16 23:05 07/31/16 23:30 White Blood Count 14.03 K/uL (4.8-10.8) Red Blood Count 5.01 M/uL (4.2-5.4) Hemoglobin 15.2 g/dL (12.0-16.0) Hematocrit 43.4 % (37-47) Mean Corpuscular Volume 86.6 fL (80-100) Mean Corpuscular Hemoglobin 30.3 pg (25-34) Mean Corpuscular Hemoglobin Concent 35.0 g/dl (32-36) Platelet Count 303 K/uL (130-400) Mean Platelet Volume 10.4 fL (7.4-10.4) Neutrophils (%) (Auto) 80.6 % Lymphocytes (%) (Auto) 15.3 % Monocytes (%) (Auto) 3.4 % Eosinophils (%) (Auto) 0.2 % Basophils (%) (Auto) 0.1 % Neutrophils # (Auto) 11.31 K/uL (1.4-6.5) Lymphocytes # (Auto) 2.14 K/uL (1.2-3.4) Monocytes # (Auto) 0.48 K/uL (0.11-0.59) Eosinophils # (Auto) 0.03 K/uL (0-0.5) Basophils # (Auto) 0.02 K/uL (0-0.2) RDW Standard Deviation 42.4 fL (36.4-46.3) RDW Coefficient of Variation 13.4 % (11.5-14.5) Immature Granulocyte % (Auto) 0.4 % Immature Granulocyte # (Auto) 0.05 K/uL (0.00-0.02) Anion Gap 17.0 mmol/L (3-11) Est Creatinine Clear Calc Drug Dose 128.1 ml/min Estimated GFR () 141.2 Estimated GFR (Non- 121.9 BUN/Creatinine Ratio 20.5 (10-20) Calcium Level 9.8 mg/dl (8.5-10.1) Human Chorionic Gonadotropin, Quant [id number] mIU/mL Urine Color DK YELLOW Urine Appearance CLEAR (CLEAR) Urine pH 5.5 (4.5-7.5) Urine Specific [facility] 1.028 (1.000-1.030) Urine Protein TRACE (NEG) Urine Glucose (UA) NEG (NEG) Urine Ketones 4+ (NEG) Urine Occult Blood NEG (NEG) Urine Nitrite NEG (NEG) Urine Bilirubin 1+ (NEG) Urine Urobilinogen NEG (NEG) Urine Leukocyte Esterase NEG (NEG) Urine WBC (Auto) 5-10 /hpf (0-5) Urine RBC (Auto) 0-4 /hpf (0-4) Urine Hyaline Casts (Auto) 5-10 /lpf (0-5) Urine Epithelial Cells (Auto) >30 /lpf (0-5) Urine Bacteria (Auto) NEG (NEG) Urine Renal Epithelial Cells /lpf (0-5) Urine Mucus PRESENT (NONE PRSENT) Urine Yeast (Auto) PRESENT (NONE PRSENT) Medications Administered Medications (Trade) Dose Ordered Sig/Mita Route Start Time Stop Time Status Last Admin Dose Admin Diphenhydramine HCl (Benadryl Inj) 25 mg NOW STAT IV 07/31/16 22:50 07/31/16 22:52 DC 07/31/16 23:05 25 MG Ondansetron HCl 4 mg 4 mg NOW STAT IV 07/31/16 22:50 07/31/16 22:52 DC 07/31/16 23:05 4 MG Sodium Chloride 1,000 ml @ 999 mls/hr Q1H1M STAT IV 07/31/16 22:50 07/31/16 23:50 DC 07/31/16 23:05 999 MLS/HR Sodium Chloride (Nss 1000ml) 1,000 ml @ 200 mls/hr Q5H STAT IV 07/31/16 22:50 08/01/16 03:49 07/31/16 23:05 200 MLS/HR Pyridoxine HCl 25 mg 25 mg NOW STAT PO 07/31/16 22:50 07/31/16 22:52 DC 07/31/16 23:46 25 MG Famotidine 20 mg/ Dextrose 102 ml @ 200 mls/hr NOW STAT IV 07/31/16 23:38 08/01/16 00:08 DC 08/01/16 00:04 200 MLS/HR Sodium Chloride (Nss 1000ml) 1,000 ml @ 999 mls/hr Q1H1M STAT IV 08/01/16 00:20 08/01/16 01:20 DC 08/01/16 00:39 999 MLS/HR Diphenhydramine HCl (Benadryl Inj) 12.5 mg NOW STAT IV 08/01/16 00:31 08/01/16 00:33 DC 08/01/16 00:37 12.5 MG ED Course Prior records/ancillary studies reviewed. Triage Nursing notes reviewed. Additional history obtained from the family. The patient's history was concerning for nausea, vomiting with is 13 weeks . Differential diagnosis: Etiologies such as hyperemesis gravidarum, gastroenteritis, food borne illness, infections, appendicitis, diverticulitis, inflammatory bowel disease, obstruction, GI bleed, biliary pathology, as well as others were entertained. Physical examination findings: As above. Abdominal examination revealed no tenderness. Vital signs reviewed and revealed stable. ER treatment provided: IV hydration 2 L NSS. B6, benadryl, zofran,pepcid On reassessment the patient felt better. Patient was tolerating p.o. intake. Patient was tolerating emmanuel geetha and crackers Diagnostics interpretation by me: The labs revealed leukocytosis most likely marginalization from vomiting. 4+ ketones. Patient was hydrated as above heart tones reviewed This appears to be consistent with hyperemesis gravidarum. Patient's been having morning sickness hold her . She is advised to take B-6 daily and to try emmanuel. She is advised to follow-up with her OB in a few days or here in the ER sooner for vomiting, abdominal pain, fevers, worsening signs or symptoms or as needed. By the evaluation outlined above emergent etiologies such as appendicitis, diverticulitis, obstruction, cardiac sources, mesenteric ischemia, aortic pathology, inflammatory bowel disease, renal colic, PUD, biliary pathology, UTI, as well as others were deemed relatively unlikely. The pt informed about the findings as listed above. All questions were answered and pleased with the treatment. Return instructions were outlined and the patient was discharged in stable condition. Outpatient prescription management: zofran Referral: The patient was referred to their OB for follow-up in 2 to 3 days for a recheck of the current condition. Medical Decision as above Departure Information Referrals Randell Meza M.D. (PCP) Patient Instructions My [facility]
[2016-08-01 01:45] VITALS: BP 93/50; PULSE 78; O2SAT 100
== END 2016-08-01 01:45 | disposition home or self-care (01) ==
LOC: C.EDB 22:43 → C.EDA 08-01 01:45
DX: O99.89 Other specified diseases and conditions complicating pregnancy, childbirth and the puerperium (principal); R11.2 Nausea with vomiting, unspecified; Z3A.13 13 weeks gestation of pregnancy

== ENCOUNTER → 2016-08-30 | Outpatient (CLI) | payer BC ==
[~2016-08-30] MED LIST changes: +ONDA8TAB62 SL; +VALA500T60 PO
[2016-08-30 18:16] LABS: GTGD 50 Grams
[2016-09-02 16:12] LABS: AFP CONCENTRATION 51.3 NG/ML; AFP MULTIPLE OF MEDIAN 1.48; AFPTS GESTATIONAL AGE 17.1 WEEKS; AFPTS INSULIN DEP DIABETIC? NO; AFPTS MATERNAL WT 172 LBS; ALPHA-FETOPROTEIN RACE CAUCASIAN=W; EDD DETERMINED BY ULTRASOUND; HISTORY OF NTD NO; REPEAT SAMPLE? NO
== END | disposition home or self-care (01) ==
LOC: C.LAB1850 14:45
PROVIDERS: ATTEND Obstetrics & Gynecology
DX: Z34.82 Encounter for supervision of other normal pregnancy, second trimester (principal)

== ENCOUNTER 2016-09-14 08:31 | Outpatient (CLI) | payer BC ==
[~2016-09-14] VITALS: Ht 160 cm; Wt 78.1 kg
[~2016-09-14 08:31] MED LIST changes: -ONDA8TAB62 SL; -VALA500T60 PO
[2016-09-14] MEDS ORDERED: LACTATED RINGER'S 1000ML 1,000 ML IV SCH ×2 (08:45→09:33)
[2016-09-14] MEDS ORDERED: ONDANSETRON INJ 2 MG/ML 2 ML VIAL IV PRN (08:45)
[2016-09-14] MEDS ORDERED: LACTATED RINGER'S 1000ML 500 ML IV ONE (08:45)
[2016-09-14] MEDS ORDERED: ONDANSETRON INJ 2 MG/ML 2 ML VIAL ONE (09:00)
[2016-09-14] MEDS ORDERED: FAMOTIDINE 20MG/102 ML D5W IV STA (09:12)
[2016-09-14] MEDS ORDERED: D5W AND LACTATED RINGERS 500 ML IV ONE (09:33)
[2016-09-14] MEDS ORDERED: FAMOTIDINE IV INJ 20 MG in DEXTROSE 5% 100ML 100 ML IV ONE (10:00)
[2016-09-14] MEDS: PROMETHAZINE HCL INJ 25 MG in SODIUM CHLORIDE 0.9% 50ML 50 ML IV PRN ×2 (10:30→19:39)
[2016-09-14] MEDS ORDERED: ONDA8TAB62 SL (10:39)
[2016-09-14 10:41] VITALS: Ht 160 cm; Wt 78.1 kg
[2016-09-14] MEDS: D5W AND LACTATED RINGERS 1,000 ML IV SCH ×2 (13:23→15:47)
[2016-09-14] MEDS: ACETAMINOPHEN 325 MG TAB PO PRN ×2 (13:24→19:39)
[2016-09-14 13:42] LABS: URINE APPEARANCE CLEAR (CLEAR); URINE BILIRUBIN NEG (NEG); URINE COLOR DK YELLOW; URINE EPITHELIAL CELL AUTO 20-30 /lpf (0-5); URINE NITRITE NEG (NEG); URINE SPECIFIC GRAVITY 1.024 (1.000-1.030); UROBILINOGEN NEG (NEG)
[2016-09-14 13:45] LABS: MANUAL MICROSCOPIC REQUIRED? NO; REVIEW REQ? NO
== END 2016-09-14 20:50 | disposition home or self-care (01) ==
LOC: C.LD 08:31 → C.OPB 08:31
PROVIDERS: ATTEND Obstetrics & Gynecology
DX: O99.281 Endocrine, nutritional and metabolic diseases complicating pregnancy, first trimester (principal); E86.0 Dehydration; Z3A.19 19 weeks gestation of pregnancy

== ENCOUNTER → 2016-11-15 | Outpatient (CLI) | payer BC ==
[~2016-11-15] MED LIST changes: +ONDA8TAB62 SL; +VALA500T60 PO
[2016-11-15 16:15] LABS: URINE APPEARANCE CLEAR (CLEAR); URINE BILIRUBIN NEG (NEG); URINE COLOR DK YELLOW; URINE EPITHELIAL CELL AUTO >30 /lpf (0-5); URINE NITRITE NEG (NEG); URINE PH 5.5 (4.5-7.5); URINE SPECIFIC GRAVITY 1.021 (1.000-1.030); UROBILINOGEN NEG (NEG)
[2016-11-15 16:29] LABS: MANUAL MICROSCOPIC REQUIRED? NO; REVIEW REQ? YES
== END | disposition home or self-care (01) ==
LOC: C.LABSPEC 15:51
PROVIDERS: ATTEND Obstetrics & Gynecology
DX: Z34.83 Encounter for supervision of other normal pregnancy, third trimester (principal)

== ENCOUNTER → 2016-11-15 | Outpatient (CLI) | payer BC ==
[2016-11-15 15:42] LABS: HEMATOCRIT 34.4 % (37-47)
[2016-11-15 20:12] LABS: GTGD 50 Grams
== END | disposition home or self-care (01) ==
LOC: C.LAB1850 14:13
PROVIDERS: ATTEND Obstetrics & Gynecology
DX: Z34.83 Encounter for supervision of other normal pregnancy, third trimester (principal)

== ENCOUNTER 2017-01-07 16:56 | Outpatient (CLI) | payer BC ==
[~2017-01-07 16:56] MED LIST changes: -VALA500T60 PO
== END 2017-01-07 17:50 | disposition home health service (06) ==
LOC: C.LD 16:56 → C.OPB 16:56
PROVIDERS: ATTEND Obstetrics & Gynecology
DX: O36.8130 Decreased fetal movements, third trimester, not applicable or unspecified (principal); Z3A.35 35 weeks gestation of pregnancy

== ENCOUNTER → 2017-01-09 | Outpatient (CLI) | payer BC | END | disposition home or self-care (01) | LOC: C.LABSPEC 15:53 | PROVIDERS: ATTEND Obstetrics & Gynecology | DX: Z34.83 Encounter for supervision of other normal pregnancy, third trimester (principal) ==

== ENCOUNTER 2017-02-02 04:07 | Inpatient (IN) | payer BC ==
[~2017-02-02] VITALS: Ht 157.5 cm; Wt 85.0 kg
[2017-02-02] MEDS ORDERED: LACTATED RINGER'S 1000ML 1,000 ML IV SCH (04:34)
[2017-02-02] MEDS ORDERED: LACTATED RINGER'S 1000ML 1,000 ML IV PRN (04:34)
[2017-02-02 05:17] LABS: HEMATOCRIT 33.7 % (37-47); MEAN CELL VOLUME 84.9 fL (80-100); MEAN CORPUSCULAR HEMOGLOBIN 26.2 pg (25-34); MEAN CORPUSCULAR HGB CONC 30.9 g/dl (32-36); PLATELET COUNT 227 K/uL (130-400); RED BLOOD COUNT 3.97 M/uL (4.2-5.4)
[2017-02-02] MEDS ORDERED: EpHEDrine SULFATE INJ 50 MG/ML AMP ONE (05:21)
[2017-02-02] MEDS ORDERED: BUPIVACAINE 0.25% 30 ML VIAL ONE (05:21)
[2017-02-02] MEDS ORDERED: FENTANYL 2MCG/ML ROPIV 1.25MG/ML 100ML BAG EPI ONE (05:21)
[2017-02-02] MEDS ORDERED: FENTANYL CITRATE INJ 50 MCG/1 ML 2 ML VIAL ONE (05:22)
[2017-02-02] MEDS ORDERED: CALCIUM CARBONATE 500 MG CHEWABLE ONE (05:41)
[2017-02-02] MEDS ORDERED: NALOXONE HCL INJ 1 MG in SODIUM CHLORIDE 0.9% 1000ML 1,000 ML IV PRN (05:55)
[2017-02-02] MEDS ORDERED: LACTATED RINGER'S 1000ML 500 ML IV PRN (05:55)
[2017-02-02] MEDS ORDERED: NALBUPHINE HCL INJ 10 MG/ML AMP IV PRN (06:00)
[2017-02-02] MEDS ORDERED: ONDANSETRON INJ 2 MG/ML 2 ML VIAL IV PRN (06:00)
[2017-02-02] MEDS ORDERED: EpHEDrine SULFATE INJ 50 MG/ML AMP IV PRN (06:00)
[2017-02-02] MEDS ORDERED: DiphenhydrAMINE HCL 50 MG/ML VIAL IV PRN (06:00)
[2017-02-02] MEDS ORDERED: FENTANYL 2MCG/ML ROPIV 1.25MG/ML 100ML BAG EPI PRN (06:00)
[2017-02-02] MEDS ORDERED: NALOXONE HCL INJ 0.4 MG/1 ML VIAL/CARP IV PRN (06:00)
[2017-02-02 06:05] VITALS: Ht 157.5 cm; Wt 85.0 kg
[2017-02-02] MEDS ORDERED: ONDANSETRON INJ 2 MG/ML 2 ML VIAL ONE (06:14)
[2017-02-02] MEDS ORDERED: NURSING VERBAL MED ORDER ONE ×2 (06:30→07:45)
[2017-02-02] MEDS ORDERED: ONDANSETRON INJ 8 MG in DEXTROSE 5% 50ML 50 ML IV STA (07:01)
[2017-02-02] MEDS ORDERED: CALCIUM CARBONATE 500 MG CHEWABLE PO STA (07:02)
[2017-02-02] MEDS ORDERED: VALA500T60 PO (07:12)
[2017-02-02] MEDS ORDERED: OXYTOCIN 30 UNITS/500ML NSS IV ONE (07:28)
[2017-02-02] MEDS ORDERED: BENZOCAINE 20% AER SPR 82.5 GM CAN EXT PRN (08:45)
[2017-02-02] MEDS ORDERED: ACETAMINOPHEN/CODEINE 300/30MG TAB PO PRN (08:45)
[2017-02-02] MEDS ORDERED: ACETAMINOPHEN 325 MG TAB PO PRN (08:45)
[2017-02-02] MEDS ORDERED: LANOLIN OINT EXT PRN ×2 (08:45)
[2017-02-02] MEDS ORDERED: SUPERCREAM 0.870 % 15GM JAR EXT PRN (08:45)
[2017-02-02] MEDS ORDERED: OXYTOCIN 30 UNITS/500ML NSS IV PRN (08:45)
[2017-02-02] MEDS ORDERED: DIPHTHERIA/TETANUS/PERTUSSIS 0.5 ML SYR/VIAL IM. ONE (08:45)
[2017-02-02] MEDS ORDERED: HYDROCORTISONE ACETATE 25 MG SUPP PR PRN (08:45)
--- NOTE | 2017-02-02 09:52 | Anesthesia Procedure Note ---
Anesthesia Epidural Removal Nt Date & Time Feb 02, 2017 at 09:52 Vital Signs Pain Intensity: 0.0 Notes Mental Status: alert / awake / arousable, participated in evaluation Nausea / Vomiting: adequately controlled Pain: adequately controlled Airway Patency, RR, SpO2: stable & adequate BP & HR: stable & adequate Hydration State: stable & adequate Neuraxial Anesthesia: was administered, sensory block is resolving Anesthetic Complications: no major complications apparent, pt satisfied with anesthetic care Epidural: removed without complications, with tip intact
[2017-02-02 11:30] VITALS: BP 118/71; PULSE 76; TEMP 36.7
--- NOTE | 2017-02-02 12:41 | DELIVERY SUMMARY ---
DATE OF OPERATION: 02/02/2017 DELIVERY NOTE DATE OF DELIVERY: 02/02/2017. FINDING: Viable female infant with Apgars of 8 and 9. Baby delivered spontaneously over an intact perineum. Cord gasses, cord blood samples obtained. Placenta delivered spontaneously. Estimated blood loss 300 mL. LABOR NOTE: The patient is a 31-year-old 3, para 2 with EDC of 06 February of a first trimester ultrasound at 39+ weeks gestational age who presented for active labor. The patient had been having prodromal contractions since approximately 0200 hours on day of admission. She denied rupture of membranes or vaginal bleeding. The patient had a benign course. She has a history of genital herpes and has been on Valtrex since 36 weeks week gestational age. She does not feel like she is having an outbreak. Blood work for the showed a blood type of A positive, antibody negative, rubella immune, hepatitis B negative. She had a normal 1-hour Glucola x2. She had a negative cell-free DNA panoramic test and she had a negative third trimester beta strep culture. Upon admission patient was 7 cm dilated, 100% efface, bulging membranes. Anesthesia was consulted and an epidural was placed. Following the epidural she had artificial rupture of membranes for light meconium. She progressed to full dilatation and began her second stage. She pushed for approximately 5 minutes delivering a viable female infant with description as above. Cord was clamped and cut. Cord gasses and cord blood samples obtained. Placenta was delivered spontaneously. Inspection of the perineum showed no lacerations. Estimated blood loss 300 mL. Sponge and needle count was correct. I attest to the content of the Intraoperative Record and any orders documented therein. Any exception s are noted below.
[2017-02-02 15:05] VITALS: BP 114/70; PULSE 73; TEMP 36.8
[2017-02-02] MEDS: IBUPROFEN 600 MG TAB PO PRN (19:38)
[2017-02-02] MEDS: DOCUSATE SODIUM 100 MG CAP PO SCH (19:38)
[2017-02-02 19:40] VITALS: BP 107/68; PULSE 77; TEMP 36.6
[2017-02-02 23:30] VITALS: BP 117/75; PULSE 72; TEMP 36.6; O2SAT 100
[2017-02-02] MEDS: ACETAMINOPHEN/CODEINE 300/30MG TAB PO PRN (23:42)
[2017-02-03 03:05] VITALS: BP 109/72; PULSE 70; TEMP 36.4; O2SAT 97
[2017-02-03] MEDS: ACETAMINOPHEN/CODEINE 300/30MG TAB PO PRN (06:34)
--- NOTE | 2017-02-03 06:38 | OB/GYN Progress Note ---
[employer] Progress Note Date of Service Feb 03, 2017. Subjective conversation w/ patient, physical exam, chart review, lab review Ambulation: ambulating normally Voiding: no voiding problems Passing Gas: Yes Diet Tolerance: Regular Diet Lochia: Small Feeding Type: Breast Feeding Pain: Says sore around epidural site. Notes: Denies any outright back pain. Denies difficulty ambulating, any numbness/ tingling or weakness in either leg, difficulty with voiding. Review of Systems Constitutional: No fever, No chills Respiratory: No cough, No shortness of breath Cardiac: No chest pain Abdomen: No nausea, No vomiting, No diarrhea Female : No dysuria Objective Vital Signs Date Time Temp Pulse Resp B/P (MAP) Pulse Ox O2 Delivery O2 Flow Rate FiO2 02/03/17 03:05 36.4 70 16 109/72 (84) 97 Room Air 02/02/17 23:30 100 Room Air 02/02/17 23:30 36.6 72 18 117/75 (89) 100 Room Air 02/02/17 19:40 36.6 77 18 107/68 (81) Room Air 02/02/17 15:05 Room Air 02/02/17 15:05 36.8 73 18 114/70 (85) Room Air 02/02/17 11:30 Room Air 02/02/17 11:30 36.7 76 18 118/71 (87) Room Air Physical Exam General Appearance: WELL-APPEARING, WD/WN, NO APPARENT DISTRESS (Found pt up and walking about easily, smiling) Respiratory/Chest: lungs clear, normal breath sounds Cardiovascular: regular rate, rhythm Abdomen: normal bowel sounds, non tender Fundus: Firm, Tender (minimal, appropriate), Relation to Umbilicus (approx one down) Extremities: normal range of motion, non-tender, no pedal edema, no calf tenderness There is an approx three cm circular contusion at the epidural insertion site. No notable erythema within and no erythema surrounding. No notable edema, minimal ttp focally. Not warm to touch. Laboratory Results Last 24 Hours Test 02/03/17 04:44 Assessment and Plan Post- Day Number: 1 Continue Routine Care: 31yo s/p , now PPD #1. - Blood type A positive. GBS negative. Rubella immune. - Vital signs reviewed and stable. - Pain controlled with motrin and tylenol #3. - No leg swelling or tenderness on calf palpation. Encourage ambulation. - Encourage breast feeding. - Hemoglobin pre-delivery 10.4, post-delivery pending this am. Bleeding has improved. Continue to monitor clinically. - Has contusion and some local pain at epidural insertion site. No distal LE c/o , gross BLE deficits on exam, or clear back pain red flags. Will continue to monitor. - Continue routine post-vaginal delivery care. - Pt agreed with above plan, all current questions answered. Willian Musa MD, PGY1 Postpartum Nurse Physician Supervision Note: I interviewed and examined the patient. Discussed with Dr. Musa and agree with findings and plan as documented in the note. Any exceptions or clarifications are listed here: Ecchymotic area over epidural site. Discussed with Anesthesia, they will evaluate the patient Documented By: David Alexander Resident Tracking Resident Involvement: Resident Care Provided Care Provided: OB Delivery (morning rounds)
--- NOTE | 2017-02-03 06:44 | Discharge Instructions ---
Discharge Instructions Date of Service Feb 03, 2017. Admission Reason for Admission: LABOR Discharge Discharge Diagnosis / Problem: Recovery from vaginal delivery Discharge Goals Goal(s): Routine recovery after delivery Medications Continue Dispensed Medications: supercream, dermaplast, tucks, lansinoh Activity Recommendations Activity Limitations: per Instructions/Follow-up section . Instructions / Follow-Up Instructions / Follow-Up ACTIVITY RECOMMENDATIONS: * Gradual return to full activity over the next 2-3 weeks. * No lifting - nothing heavier than baby over the next 2-3 weeks. * Do not engage in vigorous exercise, sexual activity or sports until cleared by your physician. * Do not drive or operate any motorized equipment until cleared by your physician. * You may shower/bathe daily. MEDICATIONS: For discomfort or pain, you may use Acetaminophen (Tylenol), Ibuprofen (Advil), or Naproxen (Aleve) following the package directions. For constipation you may use Colace following the package directions. BREAST CARE: If you are not breast feeding: * Wear a supportive bra 24 hours a day for one to two weeks. * Avoid stimulating your breasts and nipples as much as possible during the first few weeks after delivery. * When taking a shower, have the warm water hit your back, not breasts. * When your breasts feel full, apply ice packs. Usually three to four times a day helps ease the discomfort. * Take a mild pain medication (Tylenol / Motrin) when you are uncomfortable. If breast feeding: * Use breast milk to lubricate nipples. Lansinoh cream may be used for sore nipples. You do not need to remove cream prior to breast feeding. If using a different brand of cream, check the label for directions regarding removal of cream prior to nursing. * Wear a supportive bra. * If having problems with breasts or breast feeding, call a [employer] operations consultant or your health care provider. EPISIOTOMY CARE: After delivery, if you have an episiotomy (stitches), the following steps will ease discomfort and aid healing. * For the first 24 hours after delivery, place ice packs next to your episiotomy to help reduce swelling. * After the first 24 hour-period, sitz baths, either portable or in the tub, are suggested. A shower with a shower arm sprayed over the episiotomy may be comforting. * Susana care should be done after each voiding and bowel movement. Squirt warm water from a plastic bottle over the perineum (region of the body between the anus and urinary opening) and pat dry. * Use Dermoplast to ease discomfort. Shake container. [place] directly over the episiotomy. Place a Tucks on a clean sanitary pad next to your episiotomy. SPECIAL CARE INSTRUCTIONS: When you are discharged from the hospital, it is important for you to follow the instructions listed below: * During the first week at home, you should be able to care for yourself and your baby. In addition, the usual light household activities are encouraged. * Limit your activities to the way you feel. Do not try to clean the house or move furniture. Be sensible. * If you actively engage in sports and have done so up until the time of your delivery, you may resume these activities as soon as you feel able. This may take up to one month or even longer. Use good judgment. * Continue to take your vitamins for at least six weeks after the of your baby. * Your diet need not be limited unless you were on a special diet before your delivery. Breast-feeding mothers need around 2500 calories per day and at least 64-80 ounces of fluid per day (8 to 10 glasses). * You should eat foods from the four major food groups. Crash diets or fad diets are to be avoided. Eating lean meats, fresh fruits and vegetables, low-fat dairy products, high fiber foods and a regular exercise program, will help you get back to your pre- weight without putting your health at risk. * Constipation is sometimes a problem after delivery. Take a mild laxative as needed. If breast feeding, Milk of Magnesia is acceptable to use. You may use a suppository or Fleets enema if no episiotomy. * A daily shower or tub bath is suggested. Be sure to thoroughly and gently dry the perineum. * A bloody vaginal discharge will usually continue until around four weeks post . A small amount of bleeding may continue for as long as six weeks. Vaginal discharge changes from the bright red bleeding after delivery to pink then brownish and finally yellowish-pink before becoming white and disappearing. * Bleeding may increase with activity. Your first period may come in 4-8 weeks. If you are breast feeding, your period may be delayed even longer. * [place] (sex) can begin whenever both you and your partner feel comfortable and do not have any form of genital infection. It is recommended that you wait at least six weeks for internal and external healing to occur. If you have questions, please talk to your health care practitioner. A condom should be used to prevent infection and . * Foreplay, gentle intercourse and lubrication is very important the first several times to prevent pain. A water-based lubricant such as K-Y jelly or Astroglide may be used. * If you have RH negative blood and your baby is RH positive, you will receive RHOGAM by injection prior to discharge. The nurse will give you a card to keep with you that has the date and place that you received RHOGAM after delivery. * During your care, you had a Rubella screen done to check for the presence of rubella antibodies in your blood. If your test was negative, you will receive a Rubella vaccine prior to discharge. This vaccine may cause a fever, soreness at the injection site and flu-like symptoms. If these symptoms persist, notify your health care practitioner. is not advised for one month after a Rubella vaccine. * Verbalizes understanding of car seat law as reviewed with patient nursing. * Car Seat hand-out given and reviewed with patient by nursing. * Shaken baby information reviewed with patient by nursing. Call you doctor if: * Heavy bleeding (saturating several pads an hour) or passing clots the size of your fist. * A fever >101 degrees F (38.3 degrees C) on two occasions four hours apart and /or chills. * Unusual pain in the pelvic or vaginal areas. * "Baby Blues" lasting longer than two weeks. If you have any questions or concerns, call your health care practitioner at . FOLLOW UP VISIT: * Please call the office at to schedule a 6 week examination. It is important you keep this appointment. It is important for you to make arrangements for either yearly or twice yearly check-ups thereafter. Current Hospital Diet Patient's current hospital diet: Regular OB Diet Discharge Diet Recommended Diet: Regular OB Diet Pending Studies Studies pending at discharge: no Medical Emergencies . Who to Call and When: Medical Emergencies: If at any time you feel your situation is an emergency, please call 911 immediately. . Non-Emergent Contact Non-Emergency issues call your: Singer Songwriter . . "Provider Documentation" section prepared by Willian Musa. . VTE Core Measure Inpt VTE Proph given/why not?: Treatment not indicated
--- NOTE | 2017-02-03 07:16 | Anesthesiology Progress Note ---
Anesthesia Progress Note Date of Service Feb 03, 2017. Progress Notes Pt was evaluated 2/2 bruising in lower back area. I spoke with the patient. She states the epidural was inserted without difficulty. She has no history of a coagulopathy. The area is tender to touch. There is some mild ecchymosis at the site of epidural insertion. She reports ambulating without difficulty, and she denies any numbness or weakness in her lower extremities. I recommended that the patient notify the anesthesia department if her back pain worsens or if she has any weakness or numbness in her lower extremities. The pt was understanding. I also spoke with Dr. Alexander.
[2017-02-03 07:35] LABS: HEMATOCRIT 33.4 % (37-47)
[2017-02-03] MEDS: CITALOPRAM 40 MG TAB PO SCH (08:30)
[2017-02-03] MEDS: FERROUS SULFATE 325 MG TAB PO SCH (08:30)
[2017-02-03] MEDS: DOCUSATE SODIUM 100 MG CAP PO SCH ×2 (08:30→19:55)
[2017-02-03] MEDS: PRENATAL VITAMIN TAB PO SCH (08:30)
[2017-02-03 09:00] VITALS: BP 128/84; PULSE 70; TEMP 36.8; O2SAT 98
[2017-02-03] MEDS: IBUPROFEN 600 MG TAB PO PRN ×2 (14:13→19:55)
[2017-02-03 15:30] VITALS: BP 107/72; PULSE 89; TEMP 36.9
[2017-02-03] MEDS ORDERED: BISACODYL 5 MG TABEC PO SCH (20:00)
[2017-02-03 23:15] VITALS: BP 117/78; PULSE 72; TEMP 36.7; O2SAT 98
[2017-02-04] MEDS: IBUPROFEN 600 MG TAB PO PRN ×2 (05:11→12:36)
--- NOTE | 2017-02-04 07:12 | OB/GYN Progress Note ---
[employer] Progress Note Date of Service Feb 04, 2017. Subjective conversation w/ patient, physical exam, chart review, lab review Ambulation: ambulating normally Voiding: no voiding problems Passing Gas: Yes Diet Tolerance: Regular Diet Feeding Type: Breast Feeding Notes: Says epidural site is still sore but improving. Denies any other focal pains. Review of Systems Constitutional: No fever, No chills Respiratory: No cough, No shortness of breath Cardiac: No chest pain Abdomen: + constipation (says also prior hx of the same), No nausea, No vomiting Female : No dysuria Objective Vital Signs Date Time Temp Pulse Resp B/P (MAP) Pulse Ox O2 Delivery O2 Flow Rate FiO2 02/03/17 23:15 36.7 72 16 117/78 (91) 98 Room Air 02/03/17 23:15 98 Room Air 02/03/17 15:30 36.9 89 18 107/72 (84) Room Air 02/03/17 15:30 Room Air 02/03/17 09:00 98 Room Air 02/03/17 09:00 36.8 70 18 128/84 (99) 98 Room Air Physical Exam General Appearance: WELL-APPEARING (found pt standing in the room, walking about easily, in NAD), WD/WN, NO APPARENT DISTRESS Respiratory/Chest: lungs clear, normal breath sounds Cardiovascular: regular rate, rhythm Abdomen: normal bowel sounds, non tender, soft Fundus: Firm, Non-Tender, Relation to Umbilicus (approx one down) Extremities: normal range of motion, non-tender, no pedal edema, no calf tenderness Back ecchymosis appears unchanged, still mildly ttp, no surrounding erythema and no notable edema. Laboratory Results Last 24 Hours Test 02/03/17 07:14 Hemoglobin 10.4 g/dL Hematocrit 33.4 % Assessment and Plan Post- Day Number: 2 Continue Routine Care: 31yo s/p , now PPD #2. - Blood type A positive. GBS negative. Rubella immune. - Vital signs reviewed and stable. - Pain controlled with motrin and tylenol #3. - No leg swelling or tenderness on calf palpation. Encourage ambulation. - Encourage breast feeding. - Hemoglobin pre-delivery 10.4, post-delivery 10.4. Continue to monitor clinically. - Regarding local ecchymosis at epidural insertion site, evaled by anesthesia yesterday. In past 24 hrs pt notes improvement in local discomfort. Will continue to monitor. - Continue routine post-vaginal delivery care. - Pt agreed with above plan, all current questions answered. Willian Musa MD, PGY1 [employer] Physician Supervision Note: I interviewed and examined the patient. Discussed with Dr. Musa and agree with findings and plan as documented in the note. Any exceptions or clarifications are listed here: [None] Documented By: Sarah Villarreal Resident Tracking Resident Involvement: Resident Care Provided Care Provided: OB Delivery (morning rounds)
[2017-02-04] MEDS: FERROUS SULFATE 325 MG TAB PO SCH (08:38)
[2017-02-04] MEDS: CITALOPRAM 40 MG TAB PO SCH (08:38)
[2017-02-04] MEDS: DOCUSATE SODIUM 100 MG CAP PO SCH (08:38)
[2017-02-04] MEDS: PRENATAL VITAMIN TAB PO SCH (08:38)
[2017-02-04 08:40] VITALS: BP 118/75; PULSE 78; TEMP 36.5; O2SAT 98
[2017-02-04 12:30] VITALS: BP_DIAS 75; PULSE 78; TEMP 36.5
== END 2017-02-04 12:50 | disposition home or self-care (01) | DRG 774 ==
LOC: C.OPB 04:07 → C.LD 04:08 → C.OPB 04:39 → C.OBG 11:27
PROVIDERS: ADMIT Obstetrics & Gynecology; ATTEND Obstetrics & Gynecology
PROC: 10907ZC Drainage of Amniotic Fluid, Therapeutic from Products of Conception, Via Natural or Artificial Opening (ICD-10-PCS; principal; 2017-02-02)
PROC: 10E0XZZ Delivery of Products of Conception, External Approach (ICD-10-PCS; principal; 2017-02-02)
DX: O98.52 Other viral diseases complicating childbirth (principal); L76.32 Postprocedural hematoma of skin and subcutaneous tissue following other procedure; A60.09 Herpesviral infection of other urogenital tract; Z3A.39 39 weeks gestation of pregnancy; Z37.0 Single live birth; Z79.899 Other long term (current) drug therapy